=== PATIENT | female | born 1950 | race Asian ===

== ENCOUNTER 2017-06-08 11:56 | Observation (INO) | payer MEDICARE, MEDICAID ==
[~2017-06-08] VITALS: Ht 152.4 cm; Wt 45.4 kg
[2017-06-08] MEDS ORDERED: cloNIDine HCL 0.1 MG TAB PO ONE (12:45)
[2017-06-08] MEDS ORDERED: MORPHINE SULFATE 4 MG/ML SYRG IV ONE (12:45)
[2017-06-08] MEDS ORDERED: ONDANSETRON HCL 4 MG/2 ML VIAL IV ONE (12:45)
[2017-06-08] MEDS ORDERED: ASPirin 81 mg TAB PO ONE (12:45)
[2017-06-08 12:56] LABS: Basophils # (auto) 0 uL; Basophils % (auto) 0.7 % (0.0-2.0); CONDITION Y; Eosinophils # (auto) 0.2 uL; Eosinophils % (auto) 4.2 % (0.0-7.0); Hematocrit 44.6 % (36.0-46.0); Hemoglobin 15.3 g/dL (12.2-16.2); Lymphocytes # (auto) 1.5 uL; Lymphocytes % (auto) 31.8 % (10.0-50.0); Mean Corpuscular Hemoglobin 33.7 pg (28.0-32.0); Mean Corpuscular Hgb Conc. 34.4 g/dL (32.0-36.0); Mean Platelet Volume 8.5 fL (7.4-10.4); Monocytes # (auto) 0.3 uL; Monocytes % (auto) 6.9 % (0.0-12.0); Neutrophils # (auto) 2.7 uL; Neutrophils % (auto) 56.4 % (37.0-80.0); Platelet Count (auto) 192 10^3/uL (140-450); Red Cell Distribution Width 12.3 % (11.6-16.0); White Blood Cell 4.9 10^3/uL (4.4-10.8)
[2017-06-08 13:44] LABS: Albumin 4.1 g/dL (3.4-5.0); Alkaline Phosphatase 53 U/L (45-117); Anion Gap 12 (5-15); Aspartate Aminotransferase 36 U/L (15-37); BUN/Creatinine Ratio 43.9; Bilirubin, Total 0.6 mg/dL (0.2-1.0); Blood Urea Nitrogen 18 mg/dL (7-18); Calcium 9.1 mg/dL (8.5-10.1); Carbon Dioxide 25 mmol/L (21-32); Chloride 101 mmol/L (98-107); GFR African American 199 mL/min; GFR Non-African American 164 mL/min; Glucose 110 mg/dL (74-106); Potassium 3.5 mmol/L (3.5-5.1); Sodium 138 mmol/L (136-145); Total Protein 7.9 g/dL (6.4-8.2)
[2017-06-08] MEDS ORDERED: NICARDIPINE 25MG/250ML BAG KIT 250 ML IV SCH (14:19)
[2017-06-08 15:14] LABS: INR 0.93 (0.9-1.15); Partial Thromboplastin Time 26.7 sec (22.64-33.71); Prothrombin Time 10.1 sec (9.37-12.3)
[2017-06-08 15:36] VITALS: BP 136/91
== END 2017-06-08 15:53 | disposition short-term general hospital (02) | DRG 65 ==
LOC: ER 11:56 → OVERFLOW 12:34 → ER 15:53
PROVIDERS: ADMIT Family Medicine; ATTEND Family Medicine
DX: I62.00 Nontraumatic subdural hemorrhage, unspecified (principal); J98.11 Atelectasis; I10 Essential (primary) hypertension
CPT/HCPCS: 36415; 70450; 71020; 80053; 84484; 85025; 85610; 85730; 93005; 96365; 99285; G0378; J2405

== ENCOUNTER 2024-11-20 12:36 | Emergency (ER) | payer OTHER, MEDICAID ==
[~2024-11-20] VITALS: Ht 152.4 cm; Wt 45.0 kg
[2024-11-20] MEDS: HYDROcodone-ACET 5/325MG TAB PO ONE (13:09)
[2024-11-20 13:18] VITALS: BP 138/63; PULSE 74; RESP 16; TEMP 98.1; O2SAT 97
--- NOTE | 2024-11-20 13:23 | DVH ---
EXAM: XY R FEMUR XRAY, XY PELVIS AP CLINICAL INDICATION: unjury TECHNIQUE: XY R FEMUR XRAY, XY PELVIS AP Comparison: None FINDINGS/IMPRESSION: There is no evidence of acute fracture or dislocation. Moderate bilateral hip osteoarthritis. The alignment is anatomical. There is no radiopaque foreign body.
--- NOTE | 2024-11-20 13:23 | DVH ---
EXAM: XY PELVIS AP CLINICAL INDICATION: unjury TECHNIQUE: XY PELVIS AP Comparison: None FINDINGS/IMPRESSION: There is no evidence of acute fracture or dislocation. Moderate bilateral hip osteoarthritis. The alignment is anatomical. There is no radiopaque foreign body.
--- NOTE | 2024-11-20 13:23 | DVH ---
INDICATION: injury COMPARISON: None TECHNIQUE: 4 views of the lumbar spine were obtained. FINDINGS: The lumbar vertebral alignment is normal. Chronic compression fracture of the L2 vertebral body. No acute fracture, vertebral compression deformity or aggressive osseous lesions. The paravertebral soft tissues are grossly unremarkable. IMPRESSION: No acute fracture.
--- NOTE | 2024-11-20 13:29 | ED.PDOC ---
History of Present Illness HPI Comments 74 y/o F, with a history of HTN, presents with c/o right-hip and bilateral, lower back pain s/p mechanical fall and injury on 11/15/24, today. Patient is a poor historian and endorses on having constant pain following said fall, which, at time of assessment, was unable to elaborate on the nature of said incident. She denies having any additional injuries, weakness, numbness, tingling, or other associated symptoms or modifiers at this time. Chief Complaint: Fall Injury Time Seen by MD: 12:40 Primary Care Provider: DOMINGO Reviewed Notes: Nurses Notes, Medications, Allergies Allergies: Coded Allergies: NO KNOWN ALLERGIES (Unverified , 06/08/17) Information Source: Patient Mode of Arrival: Wheelchair Severity: Moderate Timing: Days Duration: Since onset Prehospital treatment: None Past Medical History PAST MEDICAL HISTORY: HTN, Denies Surgical History (Other): bladder surgery [employer] History: No Pertinent [employer]IST History Family History Family History: Unknown Social History Smoker: Non-Smoker Alcohol: Denies ETOH Use Drugs: Denies Drug Use Lives In: Home Musculoskeletal: reports: back pain (bilateral lower back pain ), others (right hip pain ) All Other Systems: Reviewed and Negative (negative unless otherwise stated above or in HPI) Physical Exam General Appearance: No Apparent Distress, Thin HEENT: Normal ENT Inspection, Pharynx Normal, TMs Normal Neck: Full Range of Motion, Non-Tender, Normal, Normal Inspection Respiratory: Chest Non-Tender, Lungs Clear, No Accessory Muscle Use, No Respiratory Distress, Normal Breath Sounds Cardiovascular: No Edema, No JVD, No Murmur, No Gallop, Normal Peripheral Pulses, Regular Rate/Rhythm Breast Exam: Deferred Gastrointestinal: No Organomegaly, Non Tender, No Pulsatile Mass, Normal Bowel Sounds, Soft Genitalia: Deferred Pelvic: Deferred Rectal: Deferred Extremities: No calf tenderness, Normal capillary refill, Normal inspection, Normal range of motion, Non-tender, No pedal edema Musculoskeletal : Location: Right Extremity Location: Hip (right iliac crest) Apperance: Normal, Tenderness Neurologic: Alert, enhanced environmental operator II-XII nml as Tested, No Motor Deficits, Normal Affect, Normal Mood, No Sensory Deficits Cerebellar Function: Normal Reflexes: Normal Skin: Dry, Normal Color, Warm Lymphatic: No Adenopathy Was a procedure done? Was a procedure done?: No Differential Dx Considerations may include: fractures, dislocation, contusions, bruising, musculoskeletal pain X-Ray, Labs, Meds, VS Vital Signs Date Time Temp Pulse Resp B/P (MAP) Pulse Ox O2 Delivery O2 Flow Rate FiO2 11/20/24 13:18 98.1 74 16 138/63 (88) 97 98.1 11/20/24 13:18 74 16 97 Room Air* 0 21 11/20/24 12:44 98.1 89 16 127/89 (102) 99 Current Medications Medications (Trade) Dose Ordered Sig/Sarthak Route Start Time Stop Time Status Last Admin Acetaminophen/ Hydrocodone Bitart ([place] 5/325MG Tab) 1 tab ONCE ONCE PO 11/20/24 12:45 11/20/24 12:46 DC 11/20/24 13:09 Time of 1ST Reevaluation: 13:10 Reevaluation 1ST: Unchanged Patient Education/Counseling: Diagnosis, Treatment, Prognosis, Need For Follow Up Family Education/Counseling: No Family Present Additional Information - I reviewed the following notes from patient's past medical encounters: previous visit on 06/23/2017 - The following tests were ordered, and results were reviewed by me: Pelvic, lumbar spine, and right-femur X-ray - I reviewed and agreed with the following test results read by other provider: Pelvic, lumbar spine, and right-femur X-ray - I discussed treatmlinents and results with medical personnel Departure 1 Departure Time of Disposition: 14:09 Impression: Primary Impression: Hip pain, right Additional Impressions: Low back pain Qualified Codes: M54.50 - Low back pain, unspecified Falling Disposition: 01 HOME / SELF CARE / HOMELESS Condition: Good e-Prescriptions Cyclobenzaprine Hcl (CYCLOBENZAPRINE HCL) 7.5 Mg Tab 7.5 MG PO Q8HP PRN for 3 Days, #9 TAB Prov: MARCIO SANCHEZ MD 11/20/24 Ibuprofen Micronized (MOTRIN TABLET) 600 Mg Tb 600 MG PO TID PRN, #40 TAB *Black box warning-NSAIDS can increase risk of MS & hypertension, GI irritation, ulceration, bleed, perferation. Do not use post cardiac surgery. Use short duration/lowest effective dose. Prov: MARCIO SANCHEZ MD 11/20/24 Discharged With: Self Critical Care Note Critical Care Time?: No Stability Stability form required: No Heart Score Heart Score: Heart Score Response (Comments) Value History N/A 0 EKG N/A 0 Age N/A 0 Risk Factors N/A 0 Troponin N/A 0 Total 0 I personally scribed for MARCIO SANCHEZ MD ([email or web address]) on 11/20/24 at 13:29. El ectronically submitted by Esvin Barkley ([email or web address]). I personally scribed for MARCIO SANCHEZ MD ([email or web address]) on 11/20/24 at 13:31. Electronically submitted by Esvin Barkley ([email or web address]). MARCIO SANCHEZ MD Nov 20, 2024 13:29
[2024-11-20] MEDS ORDERED: IBU600T PO (14:11)
[2024-11-20] MEDS ORDERED: CYCL-838 PO (14:11)
== END 2024-11-20 14:34 | disposition home or self-care (01) ==
LOC: ER 12:36
DX: M54.59 Other low back pain (principal); M25.551 Pain in right hip; I10 Essential (primary) hypertension; W18.09XA Striking against other object with subsequent fall, initial encounter; Y93.89 Activity, other specified; Y92.89 Other specified places as the place of occurrence of the external cause; Y99.8 Other external cause status
CPT/HCPCS: 72100; 72170